=== PATIENT | male | born 1980 | race Caucasian/White ===

== ENCOUNTER 2021-08-12 09:43 | Emergency (ER) | payer BC, SELFPAY ==
[2021-08-12 09:44] VITALS: BP 149/100; PULSE 114; RESP 18; TEMP 36.8; O2SAT 94; BMI 28.8
--- NOTE | 2021-08-12 10:15 | CT_ITS ---
STUDY: CT ABDOMEN AND PELVIS WITHOUT CONTRAST REASON FOR EXAM: Male, 41 years old. Left lower quadrant pain for 3 days RADIATION DOSAGE (If Supplied By Facility): CTDIvol = ( 7.97 ) mGy, DLP = ( 422.17 ) mGycm TECHNIQUE: Transaxial images were obtained from the dome of the diaphragm to the symphysis pubis without oral contrast, and without intravenous contrast. Sagittal and coronal images were reconstructed. Individualized dose optimization techniques were used for this CT. COMPARISON: None. FINDINGS: The visualized lung bases are unremarkable. The visualized portions of the heart are within normal limits. Liver is fatty infiltrated without focal lesions.. Normal gallbladder and extrahepatic biliary system. Normal spleen. Normal pancreas. Normal bilateral adrenal glands. Normal right kidney. Normal left kidney. There is mild left lower quadrant sigmoid diverticulitis without perforation or abscess. There is no intestinal obstruction. Appendix is normal. Normal abdominal aorta. Normal inferior vena cava. Normal retroperitoneum. Normal urinary bladder. Normal abdominal wall. Normal osseous structures. CT/Abdomen/Pelvis without Cont IMPRESSION: 1. Mild left lower quadrant diverticulitis. No abscess. 2. Hepatic steatosis. Electronically Signed: Sheila Moreira MD at 12:01 EDT Tel , Service support ,
--- NOTE | 2021-08-12 10:17 | EDS_ITS ---
HPI HPI - GI History of Present Illness Chief Complaint: Abd Pain Narrative Narrative: Patient presents with left-sided flank pain that he has had since evening, approximately 2 days ago. He states he felt gradual onset of worsening pain mainly in his left lower quadrant. He took ibuprofen this morning with mild relief. He noticed his urine was dark this morning. However, he denies any fevers or chills. No nausea or vomiting. No problems with bowel movements, no diarrhea or constipation. He denies dysuria or gross hematuria. No past surgical history to his abdomen. States the pain is sometimes worse when he stands and walks. It has been constant recently, worse this morning, prompting him to come to the emergency department. [facility] Medical History no medical history Home Medications ciprofloxacin HCl [Cipro] 500 mg PO BID #20 tab 08/12/21 [Rx Last Taken Unknown] hydrocodone-acetaminophen 1 tab PO Q6H PRN 3 Days #10 tab 08/12/21 [Rx Last Taken Unknown] metronidazole 500 mg PO TID #30 tab 08/12/21 [Rx Last Taken Unknown] Allergy/AdvReac Type Severity Reaction Status Date / Time Penicillins Allergy Rash Verified 08/12/21 09:58 Social History Smoking Status: Current every day smoker tobacco type: cigarettes ROS ROS ED ROS Narrative Constitutional: No fever, no chills. HEENT: No sore throat. No neck pain. No loss of vision. No rhinorrhea. Cardiovascular: No chest pain. No palpitations. No pedal edema. Respiratory: No cough, no shortness of breath. Abdominal: Left lower quadrant abdominal pain. No nausea. No vomiting. No diarrhea or constipation. No blood in stool. Genitourinary: No dysuria. No hematuria. Dark urine this morning. Musculoskeletal: No myalgias. No arthralgias. Neurologic: No headaches. No dizziness. No lightheadedness. Skin: No rash. No change in color. Psychiatric: No depression. No anxiety. EXAM Physical Exam Narrative Exam Narrative: Afebrile. Vital signs noted. HEENT: Normocephalic. Atraumatic. PERRL, EOMI. Neck soft and supple. No point tenderness or step off. Cardiovascular: Regular rate and rhythm. No murmurs, rubs, or gallops appreciated. Respiratory: No tachypnea. Lungs clear to auscultation bilaterally. Gastrointestinal: Mild tenderness to palpation left lower quadrant. Abdomen soft, nontender, with normoactive bowel sounds. No rebound or guarding. Neurological: Awake. Alert. Nonfocal, nonlateralizing. Skin: No rash. Normal color. No pallor. Musculoskeletal: No pedal edema. Full range of motion extremities. Const Vital Signs: 08/12/21 09:44 Temperature 98.2 F Temperature Source Temporal Pulse Rate 114 H Respiratory Rate 18 Blood Pressure 149/100 H Blood Pressure Mean 116 Pulse Ox 94 Oxygen Delivery Method Room Air MDM MDM MDM Narrative Medical decision making narrative: In the differential diagnosis is diverticulitis, although he is not having any problems with obstipation or diarrhea. He also may have ureterolithiasis. Patient has an elevated white count of 15.9, hemoglobin 17.3 with hematocrit 50.4. CMP shows glucose appropriately elevated, total bili also slightly elevated. Urinalysis is negative for infection in the sense of negative nitrites and WBCs within normal limits. CT of the abdomen pelvis does show mild sigmoid diverticulitis without evidence of perforation or abscess formation. Repeat examination shows a patient resting comfortably. He does not have a primary care physician to follow-up with currently. I was able to discuss the patient with the [employer] sales representative, Dr. Mooney. He will be able to follow-up with him closely on Saturday. Patient is to give the office a call. He will be given a dose of IV Cipro and Flagyl here in the emergency department and prescription written for the next 10 days. I will also write him for a small amount of narcotic analgesia. I reviewed his prescription monitoring program. Repeat examination shows his abdomen remains soft. He was warned of the risk of abscess formation and perforation and I stressed the importance of close follow-up with a physician. Return instructions to the emergency department were reviewed. Disposition is discharged home in stable condition. Lab Data Attestation: I reviewed the patient's lab results. Labs: Laboratory Results - last 24 hr 08/12/21 08/12/21 08/12/21 10:36 10:42 10:42 WBC 15.9 H RBC 5.02 Hgb 17.3 H Hct 50.4 MCV 100.4 H MCH 34.5 H MCHC 34.3 RDW Std Deviation 45.9 H RDW Coeff of Chrissy 12.4 Plt Count 180 MPV 10.7 Immature Gran % (Auto) 0.500 Neut % (Auto) 74.3 H Lymph % (Auto) 16.2 L Young % (Auto) 8.4 Eos % (Auto) 0.3 Baso % (Auto) 0.3 Absolute Neuts (auto) 11.8 H Absolute Lymphs (auto) 2.58 Nucleated RBC % 0 Sodium 136 Potassium 4.0 Chloride 103 Carbon Dioxide 27.0 Anion Gap 6 BUN 12 Creatinine 1.26 Estim Creat Clear Calc 79.66 Est GFR (MDRD) Af Amer 81 Est GFR (MDRD) Non-Af 67 BUN/Creatinine Ratio 9.5 L Glucose 113 H Calcium 9.1 Total Bilirubin 1.70 H AST 22 ALT 46 Alkaline Phosphatase 93 Total Protein 8.0 Albumin 4.1 Globulin 3.9 Albumin/Globulin Ratio 1.1 Urine Color [place] Urine Clarity Sl. Cloudy Urine pH 6.0 Ur Specific [place] 1.020 Urine Protein 30 H Urine Glucose (UA) Normal Urine Ketones 5 H Urine Occult Blood 25 H Urine Nitrite Negative Urine Bilirubin 1 H Urine Urobilinogen 4 H Ur Leukocyte Esterase 25 H Urine RBC 0-5 SEEN Urine WBC 0-5 SEEN Ur Squamous Epith Cells 0 SEEN Urine Bacteria 0 SEEN Urine Mucus 1+ Radiography Diagnostic Testing: Clinical Impression(s) from Imaging Studies Abdomen/Pelvis CT 08/12/21 10:15 IMPRESSION: 1. Mild left lower quadrant diverticulitis. No abscess. 2. Hepatic steatosis. Electronically Signed: Sheila Moreira MD at 12:01 EDT Tel , Service support , Discharge Plan Triage Chief Complaint: Abd Pain ED Provider: Alfredo Dahl Dx/Rx/DC Orders Clinical Impression: Diverticulitis of sigmoid colon Instructions: ED Diverticulitis Prescriptions: New ciprofloxacin HCl [Cipro] 500 mg tablet 500 mg PO BID Qty: 20 RF: 0 metronidazole 500 mg tablet 500 mg PO TID Qty: 30 RF: 0 hydrocodone-acetaminophen 5-325 mg tablet 1 tab PO Q6H PRN (Reason: pain) 3 Days Qty: 10 RF: 0 Primary Care Provider: Care Physician,No Primary Referrals: Friend,DO Luis [STAFF PHYSICIAN] - 08/14/21 Care Physician,No Primary [Primary Care Provider] - Disposition Disposition: Home, Self Care
--- NOTE | 2021-08-12 10:40 | EX.ED.DYSGE1 ---
HPI History of Present Illness Chief Complaint: Abd Pain Informant: patient and parent Narrative Narrative: 13-year-old male brought in by mother for abdominal pain. Mom states this has been going on for approximately 1 week. He complains of diffuse abdominal pain. He has had 1-2 episodes of vomiting. Denies diarrhea or constipation. Denies urinary complaints. He has been able to tolerate p.o. He was seen at urgent care and by his primary care physician. Mom states his primary care physician advised him to come to the ED for CT scan. Recent Illness/Hospitalization: No PFSH PFSH Medical History no medical history Home Medications NK 08/12/21 [History Last Taken Unknown] Allergy/AdvReac Type Severity Reaction Status Date / Time Penicillins Allergy Rash Verified 08/12/21 09:58 Social History Smoking Status: Current every day smoker tobacco type: cigarettes ROS ROS ED Constitutional Constitutional ED: Denies fever(s) Eyes Eyes: Denies change in vision ENT ENT ED: Denies rhinorrhea or sore throat Cardiovascular Cardiovascular: Denies chest pain Respiratory/Chest Respiratory/Chest: Denies cough or dyspnea Gastrointestinal Gastrointestinal: Reports abdominal pain, nausea and vomiting; Denies constipation or diarrhea Genitourinary Genitourinary ED: Denies dysuria Musculoskeletal Musculoskeletal: Denies myalgias Integumentary Denies rash Neurologic Neurologic: Denies headache(s) Psychiatric Psychiatric: Denies suicidal thoughts EXAM Physical Exam Const Vital Signs: 08/12/21 09:44 Temperature 98.2 F Temperature Source Temporal Pulse Rate 114 H Respiratory Rate 18 Blood Pressure 149/100 H Blood Pressure Mean 116 Pulse Ox 94 Oxygen Delivery Method Room Air Positive well nourished and well developed General Appearance ED: well developed HEENT Reports normocephalic and head/scalp atraumatic Eyes PERRL and EOMs intact bilaterally Neck supple General: Negative for tenderness Chest Wall inspection of chest normal Resp normal respiratory effort and clear to auscultation bilaterally Cardio regular rate and regular rhythm GI non-distended Palpation: soft and tender epigastric and RLQ; Negative for guarding or rebound tenderness present no CVA tenderness Extremity normal to inspection Neuro oriented x3 Sensorium / Orientation: alert Psych mental status grossly normal Discharge Plan Triage Chief Complaint: Abd Pain ED Provider: Alfredo Dahl Dx/Rx/DC Orders Prescriptions: No Action NK RF: 0 Primary Care Provider: NOT,DEFINED
[2021-08-12 10:41] LABS: Bacteria 0 SEEN /hpf (None Seen); Squamous Epithelial Cells - UA 0 SEEN /hpf (0-5)
[2021-08-12] MEDS: 0.9% Normal Saline 1,000 ML 1000 ML IV (10:41)
[2021-08-12 10:42] LABS: Color, Urine Amber (Yellow); Glucose, Dipstick Normal (Normal); Ketone-Dipstick 5 mg/dl (Negative); Leukocyte Esterase-Dipstick 25 /ul (Negative); Nitrite-Dipstick Negative (Negative); Occult Blood-Urine 25 /ul (Negative); Protein-Dipstick 30 mg/dl (Negative); Urine Clarity Sl. Cloudy (Clear); Urine Urobilinogen 4 mg/dl (Normal)
[2021-08-12 10:43] LABS: Urine Bilirubin Dipstick 1 mg/dL (Negative)
[2021-08-12 10:54] LABS: Mucous, Urine 1+ /hpf (<or=2+); Red Blood Cells-Urine 0-5 SEEN /hpf (0-5); White Blood Cells 0-5 SEEN /hpf (0-5)
[2021-08-12 10:54] LABS: Absolute Lymphocyte Count 2.58 X10^3/uL (0.83-4.51); Absolute Neutrophil Count 11.8 X10^3/uL (2.0-7.7); Basophil# 0.04 X10^3/uL; Basophil% 0.3 % (0-1); Eosinophil# 0.04 X10^3/uL; Eosinophils% 0.3 % (0-5); Hematocrit 50.4 % (40-54); Hemoglobin 17.3 g/dL (13.0-16.5); Lymphocyte # 2.58 X10^3/ul (0.83-4.51); Lymphocyte % 16.2 % (19-41); Mean Corp Hgb Conc 34.3 g/dL (32-36); Mean Corpuscular Hgb 34.5 pg (27.0-32.0); Mean Corpuscular Volume 100.4 fL (80-94); Mean Platelet Vol. 10.7 fl (6.2-12.0); Monocyte# 1.34 X10^3/uL; Monocyte% 8.4 % (0-10); NRBC Flagged by Analyzer 0 % (0-5); Neutrophil # 11.84 X10^3/uL (2.7-7.7); Neutrophil % 74.3 % (47-70); Platelet Count 180 K/mm3 (150-450); RBC Distribution Width CV 12.4 % (11.6-14.6); RBC Distribution Width SD 45.9 fl (35.1-43.9); Red Blood Count 5.02 M/mm3 (4.6-6.2); White Blood Count 15.9 K/mm3 (4.4-11.0)
[2021-08-12 11:12] LABS: ALB/GLOB Ratio 1.1 RATIO (0.9-2.4); AST(SGOT) 22 U/L (15-37); Alanine Aminotransfer ALT/SGPT 46 U/L (16-61); Albumin, Serum 4.1 g/dL (3.2-5.0); Alkaline Phosphatase 93 U/L (45-117); Anion Gap 6 (5-15); BUN 12 mg/dL (7-18); BUN/Creat Ratio 9.5 RATIO (10-20); Calcium,Total 9.1 mg/dL (8.5-10.1); Chloride 103 mmol/L (98-107); Creatinine, Serum 1.26 mg/dL (0.70-1.30); EST Glomerular Filtration Rate 67 mL/min (>60); Est Glom Filt Rate - Afr Amer 81 mL/min (>60); Estimated Creatinine Clearance 79.66 ml/min; Globulin 3.9 g/dL (2.2-4.2); Glucose 113 mg/dL (74-106); Sodium Level 136 mmol/L (136-145)
[2021-08-12] MEDS: metroNIDAZOLE 500 MG/100 ML BAG 100 MG IV (13:29)
[2021-08-12] MEDS: Ciprofloxacin 400 MG/200 ML BAG 200 MG IV (14:43)
[2021-08-12 16:18] VITALS: PULSE 95; RESP 18; O2SAT 96
== END 2021-08-12 16:24 | disposition home or self-care (01) ==
PROVIDERS: Emergency Provider Emergency Medicine
DX: K57.32 Diverticulitis of large intestine without perforation or abscess without bleeding (principal); K76.0 Fatty (change of) liver, not elsewhere classified; F17.210 Nicotine dependence, cigarettes, uncomplicated
CPT/HCPCS: 74176; 80053; 81001; 85025; 96361; 96365; 96366; 96367; 99283; J7030; J7050; A4216; J0744

== ENCOUNTER 2021-08-19 09:34 | Inpatient (IN) | payer BC, SELFPAY ==
[2021-08-19] VITALS (9 sets, daily range): BP systolic 113–149; BP diastolic 74–95; PULSE 70–109; RESP 15–17; TEMP 36.2–37.1; O2SAT 96–100; BMI 28.2; BMI 28.3
--- NOTE | 2021-08-19 09:57 | CT_ITS ---
STUDY: CT ABDOMEN AND PELVIS WITH CONTRAST REASON FOR EXAM: Male, 41 years old. Diverticulitis, worsening pain RADIATION DOSAGE (If Supplied By Facility): CTDIvol = ( 11.7 ) mGy, DLP = ( 886.17 ) mGycm TECHNIQUE: Transaxial images were obtained from the dome of the diaphragm to the symphysis pubis without oral contrast. IV 100mL Isovue-300 was administered. Sagittal and coronal images were reconstructed. Individualized dose optimization techniques were used for this CT. COMPARISON: 08/12/2021. FINDINGS: The visualized lung bases are unremarkable. The visualized portions of the heart are within normal limits. Normal liver. Normal gallbladder and extrahepatic biliary system. Normal spleen. Normal pancreas. Normal bilateral adrenal glands. Normal right kidney. Normal left kidney. Normal visualized stomach. Normal small intestine. There is wall thickening and inflammation at the mid sigmoid colon with adjacent extraluminal gas containing collection measuring 5 x 3.5 cm representing an abscess. This is new since the previous study. The appendix is visualized and appears normal. Normal abdominal aorta. Normal inferior vena cava. Normal retroperitoneum. Normal urinary bladder. Mild fatty density at the inguinal canals. Normal abdominal wall. Normal osseous structures. CT/Abdomen/Pelvis W IV Cont ONLY IMPRESSION: Sigmoid diverticulitis with an abscess noted. Electronically Signed: Carmelo Rivera DO at 10:58 EDT Tel [phone], Service support ,
--- NOTE | 2021-08-19 09:57 | EDS_ITS ---
HPI HPI - GI History of Present Illness Chief Complaint: Abd Pain Informant: patient Abdominal Pain/Flank Pain Onset: Weeks (1-2) Context: Gradual Onset Timing: Continuous Quality: Aching, Sharp and Stabbing Location: LLQ Current Severity: Severe Maximum Severity: Severe Worsened by: Movement Relieved by: Nothing Nausea/Vomiting/Emesis GI Symptom: Negative for Nausea and Vomiting Diarrhea/Melena/Hematochezia GI Symptom: Negative for Diarrhea, Melena and Hematochezia Associated Symptoms Associated Symptoms: Negative for Dysuria, Frequency, Hematuria and Urgency Narrative Narrative: 41-year-old healthy male diagnosed with diverticulitis 1 week ago at a visit here, prescribed Cipro and Flagyl which he has been compliant with, pain continuing to worsen however. Denies any nausea, vomiting, fevers, or chills. No pain in his back. No new symptoms, the pain is not improved at all with antibiotics and just has continued to worsen. PFSH PFSH Medical History no medical history no medical history Home Medications ciprofloxacin HCl [Cipro] 500 mg PO BID #20 tab 08/12/21 [Rx Last Taken Unknown] metronidazole 500 mg PO TID #30 tab 08/12/21 [Rx Last Taken Unknown] Allergy/AdvReac Type Severity Reaction Status Date / Time Penicillins Allergy Rash Verified 08/19/21 09:34 Surgical History no surgical history no surgical history Social History Smoking Status: Current every day smoker tobacco type: cigarettes ROS ROS ED Constitutional Constitutional ED: Reports anorexia; Denies chills or fever(s) Eyes Eyes: Denies change in vision or diplopia ENT ENT ED: Denies rhinorrhea or sore throat Cardiovascular Cardiovascular: Denies chest pain or palpitations Respiratory/Chest Respiratory/Chest: Denies cough or dyspnea Gastrointestinal Gastrointestinal: Reports as per HPI and abdominal pain; Denies diarrhea, nausea or vomiting Genitourinary Genitourinary ED: Denies dysuria or hematuria Musculoskeletal Musculoskeletal: Denies back pain or neck pain Integumentary Denies abscess or rash Neurologic Neurologic: Denies headache(s), paresthesias or weakness Psychiatric Psychiatric: Denies anxiety or suicidal thoughts EXAM Physical Exam Const Vital Signs: 08/19/21 09:35 08/19/21 09:39 08/19/21 11:16 Temperature 97.2 F L 97.2 F L 97.7 F L Temperature Source Temporal Temporal Oral Pulse Rate 109 H 109 H 83 Respiratory Rate 17 17 16 Blood Pressure 149/95 H 149/95 H 132/89 H Blood Pressure Mean 113 113 103 Pulse Ox 100 100 99 Oxygen Delivery Method Room Air Room Air Room Air Positive well nourished and well developed General Appearance ED: well developed and NAD HEENT Reports moist mucous membranes normocephalic and atraumatic Eyes PERRL and EOMs intact bilaterally Neck full ROM and supple Resp normal respiratory effort and clear to auscultation bilaterally Cardio regular rate, regular rhythm and no murmurs GI non-distended Auscultation: normoactive bowel sounds Palpation: soft, tender LLQ and guarding LLQ; Negative for rebound tenderness present Back/Spine no CVA tenderness General Back: other FROM Extremity normal to inspection General Extremety ED: Negative for edema, pulses abnormal or tenderness General Extremity: Negative for edema or pulses abnormal Neuro oriented x3, CN's II-XII intact bilaterally and no sensory deficits noted Sensorium / Orientation: awake and alert Motor Exam: strength 5/5 throughout Skin no rashes or lesions noted and no wounds MDM MDM MDM Narrative Medical decision making narrative: Pain was treated, patient is clinically stable. CT showing worsening diverticulitis now with a 5 cm abscess associated with it which is likely why he is failing outpatient treatment. Discussed with Dr. Serrano, who recommends medicine admission and consultation with in [facility] radiology, they will not likely be available over the weekend but will admit the patient for IV antibiotics since no other hospitals have had any beds recently. Lab Data Attestation: I reviewed the patient's lab results. Labs: Laboratory Results - last 24 hr 08/19/21 08/19/21 10:00 10:00 WBC 14.2 H RBC 4.39 L Hgb 15.3 Hct 43.5 MCV 99.1 H MCH 34.9 H MCHC 35.2 RDW Std Deviation 42.5 RDW Coeff of Chrissy 11.7 Plt Count 284 MPV 10.2 Immature Gran % (Auto) 0.500 Neut % (Auto) 71.2 H Lymph % (Auto) 18.3 L B[place] % (Auto) 8.8 Eos % (Auto) 0.9 Baso % (Auto) 0.3 Absolute Neuts (auto) 10.2 H Absolute Lymphs (auto) 2.60 Nucleated RBC % 0 Sodium 134 L Potassium 3.6 Chloride 100 Carbon Dioxide 23.0 Anion Gap 11 BUN 15 Creatinine 1.22 Estim Creat Clear Calc 82.27 Est GFR (MDRD) Af Amer 84 Est GFR (MDRD) Non-Af 69 BUN/Creatinine Ratio 12.3 Glucose 112 H Calcium 9.1 Radiography Diagnostic Testing: Clinical Impression(s) from Imaging Studies Abdomen/Pelvis CT 08/19/21 09:57 IMPRESSION: Sigmoid diverticulitis with an abscess noted. Electronically Signed: Carmelo Rivera DO at 10:58 EDT Tel [phone], Service support , Discharge Plan Triage Chief Complaint: Abd Pain ED Provider: Kurt Reyes Dx/Rx/DC Orders Clinical Impression: Diverticulitis of large intestine with abscess without bleeding, Failure of outpatient treatment Prescriptions: No Action ciprofloxacin HCl [Cipro] 500 mg tablet 500 mg PO BID Qty: 20 RF: 0 metronidazole 500 mg tablet 500 mg PO TID Qty: 30 RF: 0 Primary Care Provider: Care Physician,No Primary Referrals: Care Physician,No Primary [Primary Care Provider] - Disposition Disposition: Acute Care [facility]
[2021-08-19] MEDS: Ondansetron 4 MG/2 ML Vial IV (10:13)
[2021-08-19] MEDS: 0.9% Normal Saline 1,000 ML 1000 ML IV (10:13)
[2021-08-19] MEDS: Ketorolac 15 MG/ML Vial IV (10:15)
[2021-08-19 10:16] LABS: Absolute Neutrophil Count 10.2 X10^3/uL (2.0-7.7); Basophil# 0.04 X10^3/uL; Basophil% 0.3 % (0-1); Eosinophil# 0.13 X10^3/uL; Eosinophils% 0.9 % (0-5); Hematocrit 43.5 % (40-54); Hemoglobin 15.3 g/dL (13.0-16.5); Lymphocyte % 18.3 % (19-41); Mean Corp Hgb Conc 35.2 g/dL (32-36); Mean Corpuscular Hgb 34.9 pg (27.0-32.0); Mean Corpuscular Volume 99.1 fL (80-94); Mean Platelet Vol. 10.2 fl (6.2-12.0); Monocyte# 1.25 X10^3/uL; Monocyte% 8.8 % (0-10); NRBC Flagged by Analyzer 0 % (0-5); Neutrophil # 10.15 X10^3/uL (2.7-7.7); Neutrophil % 71.2 % (47-70); Platelet Count 284 K/mm3 (150-450); RBC Distribution Width CV 11.7 % (11.6-14.6); RBC Distribution Width SD 42.5 fl (35.1-43.9); Red Blood Count 4.39 M/mm3 (4.6-6.2); White Blood Count 14.2 K/mm3 (4.4-11.0)
[2021-08-19] MEDS: Morphine 4 MG/ML Syringe IV (10:16)
[2021-08-19 10:25] LABS: Anion Gap 11 (5-15); BUN 15 mg/dL (7-18); BUN/Creat Ratio 12.3 RATIO (10-20); Calcium,Total 9.1 mg/dL (8.5-10.1); Chloride 100 mmol/L (98-107); Creatinine, Serum 1.22 mg/dL (0.70-1.30); EST Glomerular Filtration Rate 69 mL/min (>60); Est Glom Filt Rate - Afr Amer 84 mL/min (>60); Estimated Creatinine Clearance 82.27 ml/min; Glucose 112 mg/dL (74-106); Potassium 3.6 mmol/L (3.5-5.1); Sodium Level 134 mmol/L (136-145)
--- NOTE | 2021-08-19 11:51 | PCM.HP.STD ---
[facility] - General General Date of Admission: 08/19/21 Date of Service: 08/19/21 HPI Narrative STEPHANIE CHAMBERLAIN, is a 41 M who presented at [facility] emergency department on 08/19/2021 with left lower quadrant abdominal pain. He initially presented on 08/12/2021 at which time he complained of left-sided flank pain that he had been suffering from since the evening prior. At that time he reported that the pain was of gradual onset and worsening in nature. He had tried ibuprofen with no relief and had decreased p.o. intake. At that time he had an elevated white count 15.9 and appeared to be mildly hemoconcentrated. A CT of his abdomen and pelvis was performed and showed mild sigmoid diverticulitis without any evidence of perforation or abscess. The case was discussed with the cook supervisor Dr. Mooney and he was to follow him in the office on Saturday the and he was discharged on Cipro and Flagyl. Unfortunately his symptoms have persisted and his pain is actually worsening. He has been compliant with his home antibiotic regimen. A repeat CT scan was done in the emergency department today and showed thickening and inflammation in the mid sigmoid colon with adjacent extraluminal gas containing a collection measuring 5 x 3.5 cm that represents an abscess. Given his out failed oral antibiotic therapy admission has been recommended by general surgery with no definitive surgical plan at this time. They recommended IR placement of a drain on Saturday when this is available. Transfer was offered but the patient really prefers to stay here so he will be admitted placed on IV antibiotics and followed up with general surgery and interventional radiology for drain to be placed as soon as available. [facility] Medical History (Updated 08/19/21 @ 12:[address] Neelam Sanchez DO) Sigmoid diverticulitis Tobacco abuse Medical History no medical history Home Medications ciprofloxacin HCl [Cipro] 500 mg PO BID #20 tab 08/12/21 [Rx Last Taken Unknown] metronidazole 500 mg PO TID #30 tab 08/12/21 [Rx Last Taken Unknown] Allergy/AdvReac Type Severity Reaction Status Date / Time Penicillins Allergy Rash Verified 08/19/21 09:34 Family History Father Hypertension Mother Hypertension Surgical History no surgical history no surgical history Social History (Updated 08/19/21 @ 12:[address] Neelam Sanchez DO) Smoking Status: Current every day smoker tobacco type: cigarettes alcohol intake: current alcohol intake frequency: 0-2 drinks per day Alcohol type: beer details: 2-3 beers every other day during a week substance use type: does not use ROS Constitutional Constitutional: Denies anorexia, change in weight, chills, fatigue, fever(s), malaise, night sweats, weakness or other Eyes Eyes: Denies blurry vision, change in eye color, change in vision, discharge from eye(s), double vision, erythema, eye pain, loss of vision or other ENT HEENT: Denies abnormal hearing, dysphagia, ear pain, epistaxis, headache(s), hearing loss, nasal congestion, nasal discharge, post nasal drip, sinus pressure, sore throat or other Cardiovascular Cardiovascular: Denies chest pain, claudication, dyspnea on exertion, edema, lightheadedness, orthopnea, palpitations, paroxysmal nocturnal dyspnea, rapid heart rate, syncope or other Respiratory/Chest Respiratory/Chest: Denies cough, dyspnea, excessive phlegm production, hemoptysis, productive cough, shortness of breath at rest, shortness of breath with exertion, wheezing or other Gastrointestinal Gastrointestinal: Reports abdominal pain and constipation; Denies coffee ground emesis, diarrhea, dyspepsia, hematemesis, hematochezia, loose stools, melena, nausea, vomiting or other Genitourinary Genitourinary: Denies burning urination, difficulty urinating, dysuria, hematuria, nocturia, urinary frequency, urinary hesitancy, urinary incontinence, urinary urgency or other Musculoskeletal Musculoskeletal: Denies arthralgias, back pain, joint pain, joint stiffness, joint swelling, myalgias, neck pain or other Neurologic Neurologic: Denies abnormal gait, abnormal speech, confusion, disequilibrium, dizziness, focal weakness, headache(s), numbness, paresthesias, seizure-like activity, seizures, syncope, tingling, tremor(s) or other Psychiatric Psychiatric: Denies anxiety, depression, homicidal ideation, suicidal ideation or other Endocrine Endocrinology: Denies change in body appearance, cold intolerance, excessive sweating, heat intolerance, polydipsia, polyuria or other Hematologic/Lymphatic Hematologic/Lymphatic: Denies anemia, easy bleeding, easy bruising, lymphadenopathy or other Allergic/Immunologic Allergic/Immunologic: Denies rhinitis, hives, eczemia, asthma or other Vital Signs Vital Signs Vital Signs: 08/19/21 09:35 08/19/21 09:39 08/19/21 11:16 Temperature 97.2 F L 97.2 F L 97.7 F L Temperature Source Temporal Temporal Oral Pulse Rate 109 H 109 H 83 Respiratory Rate 17 17 16 Blood Pressure 149/95 H 149/95 H 132/89 H Blood Pressure Mean 113 113 103 Pulse Ox 100 100 99 Oxygen Delivery Method Room Air Room Air Room Air 08/19/21 11:47 08/19/21 11:48 Temperature 97.7 F L Temperature Source Oral Pulse Rate 83 Respiratory Rate 16 16 Blood Pressure 132/89 H Blood Pressure Mean 103 Pulse Ox 99 Oxygen Delivery Method Room Air Weight Weight: 89.267 kg Body Mass Index (BMI) 28.2 Physical Exam Const alert, oriented x3 and no apparent distress Constitutional Narrative: Overweight middle-aged white male lying in bed, appears comfortable, nontoxic General Appearance: cooperative HEENT normocephalic, head/scalp atraumatic, hearing grossly normal bilaterally and moist oral mucous membranes Eyes PERRL, EOMs intact bilaterally and conjunctivae normal Eyes Narrative: No scleral icterus Neck no lymphadenopathy, supple and no JVD Neck Narrative: Trachea midline, Mallampati 2, tongue piercing central tongue Resp normal respiratory effort, no retractions, no use of accessory muscles and clear to auscultation bilaterally Auscultation: Negative for crackles, rales, rhonchi or wheezes Cardio regular rate, regular rhythm, S1 normal heart sound, S2 normal heart sound, no murmurs, no rub, no gallops, no clicks and no JVD GI normal to inspection, nondistended, normoactive bowel sounds, soft to palpation and non-distended Palpation: tender LLQ and guarding Extremity normal to inspection, full ROM and no clubbing, cyanosis or edema Peripheral Pulses: Yes pulses 2+ throughout Skin no rashes or lesions noted, no wounds, skin turgor normal, no jaundice, no petechiae and no mottling Neuro oriented x3, CN's II-XII intact bilaterally, moves all extremities and no focal motor deficits Neuro Narrative: Normal sensation diffusely Sensorium / Orientation: awake, alert, oriented to person, oriented to place and oriented to time Speech: speech normal Motor Exam: strength 5/5 throughout Psych affect normal Psych Narrative: Very pleasant Results Lab / Micro Data Attestation: I reviewed the patient's lab results. Result Diagrams: 08/19/21 10:00 08/19/21 10:00 Labs: Laboratory Results - last 24 hr 08/19/21 10:00: WBC 14.2 H, RBC 4.39 L, Hgb 15.3, Hct 43.5, MCV 99.1 H, MCH 34.9 H, MCHC 35.2, RDW Std Deviation 42.5, RDW Coeff of Chrissy 11.7, Plt Count 284, MPV 10.2, Immature Gran % (Auto) 0.500, Neut % (Auto) 71.2 H, Lymph % (Auto) 18.3 L, [place] % (Auto) 8.8, Eos % (Auto) 0.9, Baso % (Auto) 0.3, Absolute Neuts (auto) 10.2 H, Absolute Lymphs (auto) 2.60, Nucleated RBC % 0 08/19/21 10:00: Sodium 134 L, Potassium 3.6, Chloride 100, Carbon Dioxide 23.0, Anion Gap 11, BUN 15, Creatinine 1.22, Estim Creat Clear Calc 82.27, Est GFR (MDRD) Af Amer 84, Est GFR (MDRD) Non-Af 69, BUN/Creatinine Ratio 12.3, Glucose 112 H, Calcium 9.1 Radiology Impression Abdomen/Pelvis CT 08/19/21 09:57 IMPRESSION: Sigmoid diverticulitis with an abscess noted. Electronically Signed: Carmelo Rivera DO at 10:58 EDT Tel [phone], Service support , Assessment & Plan Assessment/Plan (1) Diverticulitis of large intestine with abscess without bleeding: (2) Failure of outpatient treatment: (3) Leukocytosis: (4) Hyponatremia: PLAN: Acute diverticulitis of the sigmoid colon with abscess -Failure of outpatient therapy and development of abscess -IR consultation for drain placement as soon as possible for source control -We will continue Cipro and Flagyl but convert to IV -N.p.o. with sips and chips sparingly -IV fluids at 75 cc/h -IV Dilaudid for pain management -Consult general surgery Leukocytosis -Suspect related to the above -Continue to monitor -IV antibiotics Hyponatremia -Mild -Suspect most likely hypovolemic hyponatremia from decreased p.o. intake -Repeat in a.m. Tobacco abuse -Patient smokes approximately 1 pack/day -Denies need for any nicotine replacement therapy at this time--> patient will ask if he desires this -Recommend cessation Elevated blood pressure without history of hypertension -May be related to pain -Continue to monitor blood pressures while admitted -If blood pressures remain consistently high during his hospitalization will recommend follow-up as an outpatient and consideration for initiation of antihypertensives Regular alcohol use -Patient states he drinks approximately 3 beers every other day -Never gone through withdrawal -We will monitor DVT prophylaxis -Lovenox daily 40 mg CODE STATUS -Full code Charges/Coding Visit Charges Inpatient E&M: 67026 Init Hosp L3
[2021-08-19] MEDS: 0.9% Normal Saline 1,000 ML 75 ML IV (14:05)
[2021-08-19] MEDS: Ciprofloxacin 400 MG/200 ML BAG 200 MG IV ×2 (14:05→21:28)
--- NOTE | 2021-08-19 15:07 | PCS.PANDOC ---
PANDEMIC DOCUMENTATION INITIATED: Date: 06/12/2021 Time: 190
[2021-08-19] MEDS: metroNIDAZOLE 500 MG/100 ML BAG 100 MG IV ×2 (15:34→23:07)
[2021-08-20 02:35] VITALS: BP 108/73; PULSE 78; RESP 16; TEMP 36.7; O2SAT 96
[2021-08-20] MEDS: 0.9% Normal Saline 1,000 ML 75 ML IV ×2 (05:57→22:54)
[2021-08-20] MEDS: metroNIDAZOLE 500 MG/100 ML BAG 100 MG IV ×3 (05:58→22:55)
[2021-08-20 06:02] LABS: Absolute Lymphocyte Count 2.51 X10^3/uL (0.83-4.51); Absolute Neutrophil Count 5.7 X10^3/uL (2.0-7.7); Basophil# 0.04 X10^3/uL; Basophil% 0.4 % (0-1); Eosinophil# 0.18 X10^3/uL; Eosinophils% 1.9 % (0-5); Hematocrit 41.1 % (40-54); Hemoglobin 14.1 g/dL (13.0-16.5); Lymphocyte # 2.51 X10^3/ul (0.83-4.51); Lymphocyte % 26.9 % (19-41); Mean Corp Hgb Conc 34.3 g/dL (32-36); Mean Corpuscular Hgb 34.5 pg (27.0-32.0); Mean Corpuscular Volume 100.5 fL (80-94); Mean Platelet Vol. 10.4 fl (6.2-12.0); Monocyte# 0.87 X10^3/uL; Monocyte% 9.3 % (0-10); NRBC Flagged by Analyzer 0 % (0-5); Neutrophil # 5.68 X10^3/uL (2.7-7.7); Neutrophil % 60.9 % (47-70); Platelet Count 271 K/mm3 (150-450); RBC Distribution Width CV 11.8 % (11.6-14.6); RBC Distribution Width SD 43.6 fl (35.1-43.9); Red Blood Count 4.09 M/mm3 (4.6-6.2); White Blood Count 9.3 K/mm3 (4.4-11.0)
[2021-08-20 06:37] LABS: ALB/GLOB Ratio 0.7 RATIO (0.9-2.4); AST(SGOT) 18 U/L (15-37); Alanine Aminotransfer ALT/SGPT 21 U/L (16-61); Albumin, Serum 2.9 g/dL (3.2-5.0); Alkaline Phosphatase 71 U/L (45-117); Anion Gap 8 (5-15); BUN 14 mg/dL (7-18); Calcium,Total 8.2 mg/dL (8.5-10.1); Chloride 105 mmol/L (98-107); EST Glomerular Filtration Rate 88 mL/min (>60); Est Glom Filt Rate - Afr Amer 106 mL/min (>60); Estimated Creatinine Clearance 100.38 ml/min; Globulin 3.9 g/dL (2.2-4.2); Glucose 84 mg/dL (74-106); Magnesium 2.4 mg/dL (1.6-2.6); Phosphorus 3.2 mg/dL (2.5-4.9); Protein, Total 6.8 g/dL (6.4-8.2); Sodium Level 137 mmol/L (136-145)
[2021-08-20 08:15] VITALS: O2SAT 95
[2021-08-20] MEDS: Enoxaparin 40 MG/0.4 ML Syringe SC (08:56)
[2021-08-20 09:04] VITALS: BP 120/85; PULSE 72; RESP 16; TEMP 36.6; O2SAT 98
[2021-08-20] MEDS: Ciprofloxacin 400 MG/200 ML BAG 200 MG IV ×2 (09:46→21:50)
--- NOTE | 2021-08-20 09:54 | EX.PCM.CON.S ---
Assessment & Plan Assessment/Plan (1) Diverticulitis of large intestine with abscess without bleeding: PLAN: Agree with drain placement. We will need to make sure once this is placed his white count comes down and he does not have increasing abdominal pain. Hopefully we will be able to discharge him and allow things to cool down. HPI Consult Data Date of Consult: 08/20/21 HPI Narrative HPI Narrative: STEPHANIE CHAMBERLAIN, is a 41 M who presented at [facility] emergency department on 08/19/2021 with left lower quadrant abdominal pain. He initially presented on 08/12/2021 at which time he complained of left-sided flank pain that he had been suffering from since the evening prior. At that time he reported that the pain was of gradual onset and worsening in nature. He had tried ibuprofen with no relief and had decreased p.o. intake. At that time he had an elevated white count 15.9 and appeared to be mildly hemoconcentrated. A CT of his abdomen and pelvis was performed and showed mild sigmoid diverticulitis without any evidence of perforation or abscess. The case was discussed with the strategic development manager Dr. Mooney and he was to follow him in the office on Saturday the and he was discharged on Cipro and Flagyl. Unfortunately his symptoms have persisted and his pain is actually worsening. He has been compliant with his home antibiotic regimen. A repeat CT scan was done in the emergency department today and showed thickening and inflammation in the mid sigmoid colon with adjacent extraluminal gas containing a collection measuring 5 x 3.5 cm that represents an abscess. Given his out failed oral antibiotic therapy admission has been recommended by general surgery with no definitive surgical plan at this time. They recommended IR placement of a drain on Saturday when this is available. Transfer was offered but the patient really prefers to stay here so he will be admitted placed on IV antibiotics and followed up with general surgery and interventional radiology for drain to be placed as soon as available. Pain has improved overnight. [facility] Medical History Diverticulitis Sigmoid diverticulitis Smoker Tobacco abuse Medical History no medical history Home Medications ciprofloxacin HCl [Cipro] 500 mg PO BID 08/19/21 [History Last Taken 08/19/21 07:00] metronidazole 500 mg PO TID 08/19/21 [History Last Taken 08/19/21 08:00] Allergy/AdvReac Type Severity Reaction Status Date / Time Penicillins Allergy Rash Verified 08/19/21 09:34 Family History Father Hypertension Mother Hypertension Surgical History no surgical history Social History Smoking Status: Current every day smoker tobacco type: cigarettes alcohol intake: current alcohol intake frequency: 0-2 drinks per day Alcohol type: beer details: 2-3 beers every other day during a week substance use type: does not use ROS Constitutional Constitutional: Denies anorexia, chills or fever(s) Cardiovascular Cardiovascular: Denies chest pain Respiratory/Chest Respiratory/Chest: Denies cough, dyspnea or shortness of breath at rest Gastrointestinal Gastrointestinal: Reports abdominal pain and constipation; Denies nausea or vomiting Genitourinary Genitourinary: Denies change in urinary stream Musculoskeletal Musculoskeletal: Denies muscle weakness Neurologic Neurologic: Denies dizziness Physical Exam Const alert, oriented x3 and no apparent distress General Appearance: cooperative HEENT normocephalic and head/scalp atraumatic Eyes PERRL and EOMs intact bilaterally Resp clear to auscultation bilaterally Cardio Rate: regular rate Rhythm: regular rhythm GI soft to palpation Palpation: tender LLQ Extremity General Extremity: Negative for calf tenderness Lab / Micro Data Result Diagrams: 08/20/21 05:30 08/20/21 05:30 Labs: Laboratory Results - last 24 hr 08/19/21 10:00: WBC 14.2 H, RBC 4.39 L, Hgb 15.3, Hct 43.5, MCV 99.1 H, MCH 34.9 H, MCHC 35.2, RDW Std Deviation 42.5, RDW Coeff of Chrissy 11.7, Plt Count 284, MPV 10.2, Immature Gran % (Auto) 0.500, Neut % (Auto) 71.2 H, Lymph % (Auto) 18.3 L, [place] % (Auto) 8.8, Eos % (Auto) 0.9, Baso % (Auto) 0.3, Absolute Neuts (auto) 10.2 H, Absolute Lymphs (auto) 2.60, Nucleated RBC % 0 08/19/21 10:00: Sodium 134 L, Potassium 3.6, Chloride 100, Carbon Dioxide 23.0, Anion Gap 11, BUN 15, Creatinine 1.22, Estim Creat Clear Calc 82.27, Est GFR (MDRD) Af Amer 84, Est GFR (MDRD) Non-Af 69, BUN/Creatinine Ratio 12.3, Glucose 112 H, Calcium 9.1 08/20/21 05:30: WBC 9.3, RBC 4.09 L, Hgb 14.1, Hct 41.1, MCV 100.5 H, MCH 34.5 H, MCHC 34.3, RDW Std Deviation 43.6, RDW Coeff of Chrissy 11.8, Plt Count 271, MPV 10.4, Immature Gran % (Auto) 0.600, Neut % (Auto) 60.9, Lymph % (Auto) 26.9, [place] % (Auto) 9.3, Eos % (Auto) 1.9, Baso % (Auto) 0.4, Absolute Neuts (auto) 5.7, Absolute Lymphs (auto) 2.51, Nucleated RBC % 0 08/20/21 05:30: Sodium 137, Potassium 4.0, Chloride 105, Carbon Dioxide 24.0, Anion Gap 8, BUN 14, Creatinine 1.00, Estim Creat Clear Calc 100.38, Est GFR (MDRD) Af Amer 106, Est GFR (MDRD) Non-Af 88, BUN/Creatinine Ratio 14.0, Glucose 84, Calcium 8.2 L, Phosphorus 3.2, Magnesium 2.4, Total Bilirubin 0.40, AST 18, ALT 21, Alkaline Phosphatase 71, Total Protein 6.8, Albumin 2.9 L, Globulin 3.9, Albumin/Globulin Ratio 0.7 L Radiology Impression Abdomen/Pelvis CT 08/19/21 09:57 IMPRESSION: Sigmoid diverticulitis with an abscess noted. Electronically Signed: Carmelo Rivera DO at 10:58 EDT Tel [phone], Service support ,
--- NOTE | 2021-08-20 11:16 | PN.HOSP_ITS ---
Subjective Subjective Patient states he is feeling a little bit better with decreased pain although pain is still present. Denies any nausea or vomiting. States he is hungry but understands that he needs to remain n.p.o. Drain is planned for tomorrow a.m. and this was discussed with him. Objective Data Objective Data Vital Signs: Vital Signs Temp Pulse Resp BP Pulse Ox 97.9 F 72 16 120/85 H 98 08/20/21 09:04 08/20/21 09:04 08/20/21 09:04 08/20/21 09:04 08/20/21 09:04 Oxygen Delivery Method Room Air Weight: 89.358 kg Body Mass Index (BMI) 28.3 Intake & Output: Intake and Output for Last 24 Hours 08/18/21 08/19/21 08/20/21 23:59 23:59 23:59 Intake Total 1100.00 / 1100.00 Balance 1100.00 / 1100.00 Lab / Micro Data Result Diagrams: 08/20/21 05:30 08/20/21 05:30 Labs: Laboratory Results - last 24 hr 08/20/21 05:30: WBC 9.3, RBC 4.09 L, Hgb 14.1, Hct 41.1, MCV 100.5 H, MCH 34.5 H , MCHC 34.3, RDW Std Deviation 43.6, RDW Coeff of Chrissy 11.8, Plt Count 271, MPV 10.4, Immature Gran % (Auto) 0.600, Neut % (Auto) 60.9, Lymph % (Auto) 26.9, [place] % (Auto) 9.3, Eos % (Auto) 1.9, Baso % (Auto) 0.4, Absolute Neuts (auto) 5.7, Absolute Lymphs (auto) 2.51, Nucleated RBC % 0 08/20/21 05:30: Sodium 137, Potassium 4.0, Chloride 105, Carbon Dioxide 24.0, Anion Gap 8, BUN 14, Creatinine 1.00, Estim Creat Clear Calc 100.38, Est GFR (MDRD) Af Amer 106, Est GFR (MDRD) Non-Af 88, BUN/Creatinine Ratio 14.0, Glucose 84, Calcium 8.2 L, Phosphorus 3.2, Magnesium 2.4, Total Bilirubin 0.40, AST 18, ALT 21, Alkaline Phosphatase 71, Total Protein 6.8, Albumin 2.9 L, Globulin 3.9, Albumin/Globulin Ratio 0.7 L Physical Exam Const alert, oriented x3 and no apparent distress Constitutional Narrative: Overweight middle-aged white male lying in bed, appe ars comfortable, nontoxic General Appearance: cooperative Exam Limitations: no limitations Nutritional Appearance: overweight HEENT normocephalic, head/scalp atraumatic, hearing grossly normal bilaterally and moist oral mucous membranes Head and Scalp: normocephalic Resp normal respiratory effort, no retractions, no use of accessory muscles and clear to auscultation bilaterally Auscultation: Negative for crackles, rales, rhonchi or wheezes Cardio regular rate, regular rhythm, S1 normal heart sound, S2 normal heart sound, no murmurs, no rub, no gallops, no clicks and no JVD GI normal to inspection, nondistended, normoactive bowel sounds, soft to palpation and non-distended Palpation: tender LLQ and guarding Extremity normal to inspection and no clubbing, cyanosis or edema Peripheral Pulses: Yes pulses 2+ throughout Neuro oriented x3 and moves all extremities Neuro Narrative: Normal sensation diffusely Sensorium / Orientation: awake and alert Speech: speech normal Assessment & Plan Assessment/Plan (1) Diverticulitis of large intestine with abscess without bleeding: (2) Failure of outpatient treatment: (3) Leukocytosis: (4) Hyponatremia: PLAN: Acute diverticulitis of the sigmoid colon with abscess -Failure of outpatient therapy and development of abscess -IR consultation for drain placement as soon as possible for source control--> plan for tomorrow a.m. -Continue Cipro and Flagyl IV -Maintain n.p.o. with sips and chips sparingly -Continue IV fluids at 75 cc/h -Continue IV Dilaudid for pain management -General surgery is following--> Dr. Serrano's note was reviewed and case was discussed with him Leukocytosis -Resolved Hyponatremia -Resolved Tobacco abuse -Patient smokes approximately 1 pack/day -Denies need for any nicotine replacement therapy at this time--> patient will ask if he desires this -Recommend cessation Elevated blood pressure without history of hypertension -May be related to pain -Blood pressures are better today -Continue to monitor blood pressures while admitted -If blood pressures remain consistently high during his hospitalization will recommend follow-up as an outpatient and consideration for initiation of antihypertensives Regular alcohol use -Patient states he drinks approximately 3 beers every other day -Never gone through withdrawal -We will monitor DVT prophylaxis -Lovenox daily 40 mg CODE STATUS -Full code Charges/Coding Visit Charges Inpatient E&M: 73594 Subs Hosp L2
[2021-08-20 14:56] VITALS: BP 112/69; PULSE 70; RESP 16; TEMP 37.2; O2SAT 98
[2021-08-20 21:49] VITALS: BP 123/75; PULSE 56; RESP 16; TEMP 36.6; O2SAT 98
[2021-08-21] VITALS (10 sets, daily range): BP systolic 108–141; BP diastolic 69–94; PULSE 58–71; RESP 14–18; TEMP 36.3–36.9; O2SAT 96–99; BMI 28.3
[2021-08-21] MEDS: metroNIDAZOLE 500 MG/100 ML BAG 100 MG IV ×2 (05:12→14:32)
--- NOTE | 2021-08-21 07:00 | CT_ITS ---
STUDY: CT PELVIS WITH CONTRAST REASON FOR EXAM: Male, 41 years old. Diverticular abscess RADIATION DOSAGE (If Supplied By Facility): CTDIvol = ( 13.31 ) mGy, DLP = ( 283.85 ) mGycm TECHNIQUE: Transaxial imaging of the pelvis was performed without oral contrast. was administered intravenously. Individualized dose optimization techniques were used for this CT. COMPARISON: Comparison is made with prior examination dated 08/19/2021. FINDINGS: Normal urinary bladder. Normal visualized small intestine. There is sigmoid diverticulosis, with thickening of the colon wall, and pericolon inflammation changes consistent with acute diverticulitis. The previously seen 5 cm x 3.5 cm abscess in the antimesenteric side of the sigmoid colon has almost completely resolved. A tiny extraluminal air is seen at the access site. The drainage was not performed. There is no pelvic fluid. There is no pelvic lymphadenopathy or mass lesion. Normal visualized pelvic arteries. Normal abdominal wall. Normal osseous structures. CT/CT Guidance Abscess Drg w/Cath IMPRESSION: Interval decrease in size of the previously seen abscess collection along the antimesenteric side of the sigmoid colon as described. Minimal residual inflammatory changes persist with a tiny extraluminal air bubble within the mesenteric fat. The drainage was not performed. Electronically Signed: Robert Kramer MD at 13:20 EDT , Service support ,
[2021-08-21 07:01] LABS: Absolute Lymphocyte Count 2.64 X10^3/uL (0.83-4.51); Absolute Neutrophil Count 4.5 X10^3/uL (2.0-7.7); Basophil# 0.04 X10^3/uL; Basophil% 0.5 % (0-1); Eosinophil# 0.17 X10^3/uL; Eosinophils% 2.1 % (0-5); Hematocrit 40.8 % (40-54); Hemoglobin 13.8 g/dL (13.0-16.5); Lymphocyte # 2.64 X10^3/ul (0.83-4.51); Lymphocyte % 32.4 % (19-41); Mean Corp Hgb Conc 33.8 g/dL (32-36); Mean Corpuscular Hgb 34.2 pg (27.0-32.0); Mean Corpuscular Volume 101.2 fL (80-94); Mean Platelet Vol. 11.5 fl (6.2-12.0); Monocyte# 0.76 X10^3/uL; Monocyte% 9.3 % (0-10); NRBC Flagged by Analyzer 0 % (0-5); Neutrophil # 4.46 X10^3/uL (2.7-7.7); Neutrophil % 54.8 % (47-70); Platelet Count 296 K/mm3 (150-450); RBC Distribution Width CV 11.7 % (11.6-14.6); RBC Distribution Width SD 43.7 fl (35.1-43.9); Red Blood Count 4.03 M/mm3 (4.6-6.2); White Blood Count 8.1 K/mm3 (4.4-11.0)
[2021-08-21 07:06] LABS: International Normalized Ratio 1.2; Prothrombin Time (Protime)PT. 14.4 SECONDS (11.7-14.9)
[2021-08-21 07:07] LABS: Partial Thromboplast Time 35.7 Seconds (24.1-36.2)
--- NOTE | 2021-08-21 08:15 | PCM.PN.HOSP ---
Subjective Subjective Follow-up on acute sigmoid diverticulitis/abscess: Patient was seen and examined. He denied any fever or chills or nausea or vomiting. Going for CT guided abscess drainage. Objective Data Objective Data Vital Signs: Vital Signs Temp Pulse Resp BP Pulse Ox 97.7 F L 58 L 15 115/72 98 08/21/21 02:57 08/21/21 02:57 08/21/21 02:57 08/21/21 02:57 08/21/21 02:57 Oxygen Delivery Method Room Air Weight: 89.358 kg Body Mass Index (BMI) 28.3 Intake & Output: Intake and Output for Last 24 Hours 08/19/21 08/20/21 08/21/21 23:59 23:59 23:59 Intake Total 2282.50 / 2282.50 496.25 / 496.25 Balance 2282.50 / 2282.50 496.25 / 496.25 Lab / Micro Data Result Diagrams: 08/21/21 05:20 08/20/21 05:30 Labs: Laboratory Results - last 24 hr 08/21/21 05:20: WBC 8.1, RBC 4.03 L, Hgb 13.8, Hct 40.8, MCV 101.2 H, MCH 34.2 H, MCHC 33.8, RDW Std Deviation 43.7, RDW Coeff of Chrissy 11.7, Plt Count 296, MPV 11.5, Immature Gran % (Auto) 0.900, Neut % (Auto) 54.8, Lymph % (Auto) 32.4, [place] % (Auto) 9.3, Eos % (Auto) 2.1, Baso % (Auto) 0.5, Absolute Neuts (auto) 4.5, Absolute Lymphs (auto) 2.64, Nucleated RBC % 0 08/21/21 05:20: PT 14.4, INR 1.2, APTT 35.7 Physical Exam Narrative Physical exam: General: Alert, Oriented x3, Cooperative, No apparent distress, Well developed HEENT: Atraumatic Oral: Moist Mucosa Neck: Supple Lungs: Clear to auscultation Cardiovascular: HS I+II, regular, no murmurs Abdomen: Bowel Sounds Present, Soft, tenderness over the left lower quadrant, no rebound tenderness Extremities: No edema Assessment & Plan Assessment/Plan (1) Diverticulitis of large intestine with abscess without bleeding: (2) Failure of outpatient treatment: (3) Leukocytosis: QUALIFIERS: Leukocytosis type: unspecified Qualified Code(s): D72.829 - Elevated white blood cell count, unspecified (4) Hyponatremia: PLAN: 1. Acute diverticulitis of the sigmoid colon with abscess, status post failed outpatient treatment Currently on IV Cipro and Flagyl WBC count is normal now Will follow-up after CT-guided abscess drainage General surgery consulted and following 2.Nicotine dependence, advised to quit 3.Elevated blood pressure without history of hypertension, resolved Charges/Coding Visit Charges Inpatient E&M: 55343 Subs Hosp L2
[2021-08-21] MEDS: Ciprofloxacin 400 MG/200 ML BAG 200 MG IV (09:26)
[2021-08-21] MEDS: Midazolam 2 MG/2 ML Syringe IV (11:33)
[2021-08-21] MEDS: fentaNYL 100 MCG/2 ML Ampul IV (11:33)
--- NOTE | 2021-08-21 15:23 | PCM.DC ---
Discharge Instructions Diet Discharge Diet: - (Continue on a transitional diet and advance your diet as can be tolerated) Activity Discharge Activity: Return to Normal Activity Weight Bearing Status: Weight bearing as tolerated Follow Up Care Test Results: Test results from this visit will be discussed in further detail at your follow-up appointment, if applicable. Discharge Plan Admission Admit Date/Time: 08/19/21 11:42 Primary Reason for Your Visit: Acute sigmoid diverticulitis/abscess Attending Provider: Vickie Aguilar Primary Care Provider: Care Physician,No Primary Consulting Providers: Tom Serrano Instructions Additional Instructions / Restrictions: Continue on a full liquid diet and advance your diet as can be tolerated. Follow-up with Dr. Serrano in the outpatient within 2 weeks. Complete your antibiotics. Discharge Orders/Prescriptions Prescriptions: New amoxicillin-pot clavulanate [Augmentin] 875-125 mg tablet 1 tab PO BID 7 Days Qty: 14 RF: 0 Discontinued metronidazole 500 mg tablet 500 mg PO TID RF: 0 ciprofloxacin HCl [Cipro] 500 mg tablet 500 mg PO BID RF: 0 Referrals / Follow Up: Care Physician,No Primary [Primary Care Provider] - Within 2 Weeks Tom Serrano MD [STAFF PHYSICIAN] - Within 1 Week Disposition Disposition (needs filled in before D/C Order can be placed): Home, Self Care
--- NOTE | 2021-08-21 15:29 | PCM.DC.SUM ---
Providers Date of Admission: 08/19/21 Date of Discharge: 08/21/21 Primary Care Physician: Carmen Primary Care Phys Consultations 08/19/21 12:33 Consult: General Surgery Routine Consulting Provider: Tom Serrano Reason for Consult: Diverticular Abscess EMERGENT Consult: No MD Notified: Yes Date Notified: 08/19/21 Time Notified: 13:28 Method of Notification: spoke on phone Reason For Visit: COMPLICATED DIVERTICULITIS Diagnosis Discharge Diagnosis (1) Diverticulitis of large intestine with abscess without bleeding: Status: Acute Code(s): K57.20 - Diverticulitis of large intestine with perforation and abscess without bleeding (2) Failure of outpatient treatment: Status: Acute Code(s): Z78.9 - Other specified health status (3) Leukocytosis: Status: Resolved Code(s): D72.829 - Elevated white blood cell count, unspecified Qualifiers: Leukocytosis type: unspecified Qualified Code(s): D72.829 - Elevated white blood cell count, unspecified (4) Hyponatremia: Status: Resolved Code(s): E87.1 - Hypo-osmolality and hyponatremia Medications at Discharge Home Medications amoxicillin-pot clavulanate [Augmentin] 1 tab PO BID 7 Days #14 tab 08/21/21 Hospital Course Operations None Procedures None and - Summary of Care Provided Minutes Spent on Discharge: 45 Hospital Course: 41-year-old male who presented with left lower quadrant abdominal pain. He was previously seen in the ED on 08/12/[address] of the abdomen and pelvis showed mild sigmoid diverticulitis without any evidence of perforation or abscess. The plan was for GI follow-up. He was discharged on Cipro and Flagyl. He presented with worsening pain. He stated that he has been compliant with his antibiotics. Repeat CT showed thickening inflammation of the mid-sigmoid colon with a 5 x 3.5 cm abscess. Patient was admitted to the [facility] floor for medical management. General surgery was consulted from the ED. Patient was managed on IV Flagyl and Cipro. He was scheduled for CT guided abscess drainage. However, repeat CT of abdominal/pelvis showed interval improvement. CT guided drainage was not performed. Patient was discharged on 1 week of Augmentin. He was asked to maintain on a transitionary diet. He will follow-up with Dr. Serrano in 1 week. Physical Exam Narrative see progress note of day Weight / BMI Weight Weight: 89.35 kg Body Mass Index (BMI) 28.3 ABG / Lab / Microbiology Data Result Diagrams: 08/21/21 05:20 08/20/21 05:30 Laboratory: Laboratory Results - last 24 hr 08/21/21 05:20: WBC 8.1, RBC 4.03 L, Hgb 13.8, Hct 40.8, MCV 101.2 H, MCH 34.2 H, MCHC 33.8, RDW Std Deviation 43.7, RDW Coeff of Chrissy 11.7, Plt Count 296, MPV 11.5, Immature Gran % (Auto) 0.900, Neut % (Auto) 54.8, Lymph % (Auto) 32.4, [place] % (Auto) 9.3, Eos % (Auto) 2.1, Baso % (Auto) 0.5, Absolute Neuts (auto) 4.5, Absolute Lymphs (auto) 2.64, Nucleated RBC % 0 08/21/21 05:20: PT 14.4, INR 1.2, APTT 35.7 Radiography Diagnostic Testing: Radiology Impression Abscess Drainage CT 08/21/21 07:00 IMPRESSION: Interval decrease in size of the previously seen abscess collection along the antimesenteric side of the sigmoid colon as described. Minimal residual inflammatory changes persist with a tiny extraluminal air bubble within the mesenteric fat. The drainage was not performed. Electronically Signed: Robert Kramer MD at 13:20 EDT , Service support , D/C Instructions Discharge Diet: - (Continue on a transitional diet and advance your diet as can be tolerated) Weight Bearing Status: Weight bearing as tolerated Meaningful Use Info Meaningful Use Diagnoses (Choose all that apply): None applicable Discharge Plan Admission Admit Date/Time: 08/19/21 11:42 Primary Reason for Your Visit: Acute sigmoid diverticulitis/abscess Attending Provider: Vickie Aguilar Primary Care Provider: Care Physician,No Primary Consulting Providers: Tom Serrano Instructions Forms: Work / School Excuse Additional Instructions / Restrictions: Continue on a full liquid diet and advance your diet as can be tolerated. Follow-up with Dr. Serrano in the outpatient within 2 weeks. Complete your antibiotics. Discharge Orders/Prescriptions Prescriptions: New amoxicillin-pot clavulanate [Augmentin] 875-125 mg tablet 1 tab PO BID 7 Days Qty: 14 RF: 0 Discontinued metronidazole 500 mg tablet 500 mg PO TID RF: 0 ciprofloxacin HCl [Cipro] 500 mg tablet 500 mg PO BID RF: 0 Referrals / Follow Up: Tom Serrano MD [STAFF PHYSICIAN] - Within 1 Week Care Physician,No Primary [Primary Care Provider] - Within 2 Weeks Disposition Disposition (needs filled in before D/C Order can be placed): Home, Self Care Charges/Coding Visit Charges Inpatient E&M: 27128 Disch Hosp
--- NOTE | 2021-08-21 15:38 | CASEMGMT ---
RN CM Assessment Introduced role of RN CM to patient. Patient is alert, oriented and able to participate in RN CM Assessment. Care providers, pharmacy, and demographics verified. Admit Dx: Complicated Diverticulitis. Was in ER - CT A/p mild sigmoid Diverticulitis without perforation/Abscess.Was Dc'd with Cipro/Flagyl and f/u Dr Mooney on 08/21. Re-Admit: No Barriers/Issues: None PCP: None, [facility] has a consult on 09/06/21 with [facility] for one and denied PCP list. Specialists: None [facility]erred [facility]acy: [facility] Insurance: [employer] Benefit: Yes LNOK: Damaris Brody LW/HPOA: None, declined offered information or completion with social sciences instructor. Made aware can return as an outpatient to complete with group social worker dept at a later time if wanting. Living Arrangements: Lives with and dtr in a 2SH, couple steps within home, 10 steps to enter home. ADL?s: Independent with ambulation and ADLs. Transportation: Both patient and drive, will transport upon DC. DME: None HHC: None SNF: None Goal: Home and does not think will have any needs, issues, or concerns with going home. DC PLAN: Home with no anticipated needs identified at this time. Anthony cox RNCM
== END 2021-08-21 17:06 | disposition home or self-care (01) | DRG 392 ==
LOC: ED 11:35 → MS3 11:58
PROVIDERS: Admitting Provider Internal Medicine; Emergency Provider Emergency Medicine; Visit Provider Internal Medicine
DX: K57.20 Diverticulitis of large intestine with perforation and abscess without bleeding (principal); E87.1 Hypo-osmolality and hyponatremia; D72.829 Elevated white blood cell count, unspecified; R03.0 Elevated blood-pressure reading, without diagnosis of hypertension; F17.210 Nicotine dependence, cigarettes, uncomplicated
CPT/HCPCS: 36415; 74177; 75989; 80048; 80053; 83735; 84100; 85025; 85610; 85730; 97802; 99156; 99251; 99284; 99406; J7030; Q9967; A4216; G0463; J0744; J2405

== ENCOUNTER → 2021-09-06 16:26 | Outpatient (CLI) | payer BC, SELFPAY ==
[2021-09-06 17:36] LABS: Absolute Lymphocyte Count 3.29 X10^3/uL (0.83-4.51); Absolute Neutrophil Count 6.1 X10^3/uL (2.0-7.7); Basophil# 0.04 X10^3/uL; Basophil% 0.4 % (0-1); Eosinophil# 0.11 X10^3/uL; Eosinophils% 1.1 % (0-5); Hematocrit 46.6 % (40-54); Hemoglobin 15.8 g/dL (13.0-16.5); Lymphocyte # 3.29 X10^3/ul (0.83-4.51); Lymphocyte % 31.5 % (19-41); Mean Corp Hgb Conc 33.9 g/dL (32-36); Mean Corpuscular Hgb 34.1 pg (27.0-32.0); Mean Corpuscular Volume 100.6 fL (80-94); Mean Platelet Vol. 11.8 fl (6.2-12.0); Monocyte# 0.87 X10^3/uL; Monocyte% 8.3 % (0-10); NRBC Flagged by Analyzer 0 % (0-5); Neutrophil # 6.11 X10^3/uL (2.7-7.7); Neutrophil % 58.5 % (47-70); Platelet Count 182 K/mm3 (150-450); RBC Distribution Width CV 12.3 % (11.6-14.6); RBC Distribution Width SD 45.7 fl (35.1-43.9); Red Blood Count 4.63 M/mm3 (4.6-6.2); White Blood Count 10.4 K/mm3 (4.4-11.0)
[2021-09-06 17:48] LABS: Erythrocyte Sedimentation Rate 21 mm/hr (0-20)
[2021-09-06 18:07] LABS: ALB/GLOB Ratio 1.1 RATIO (0.9-2.4); AST(SGOT) 29 U/L (15-37); Alanine Aminotransfer ALT/SGPT 55 U/L (16-61); Alkaline Phosphatase 99 U/L (45-117); Anion Gap 8 (5-15); BUN 10 mg/dL (7-18); BUN/Creat Ratio 11.2 RATIO (10-20); CRP 8.04 mg/L (0.0-3.0); Calcium,Total 9.3 mg/dL (8.5-10.1); Chloride 106 mmol/L (98-107); Cholesterol 239 mg/dL (200); Creatinine, Serum 0.89 mg/dL (0.70-1.30); EST Glomerular Filtration Rate 100 mL/min (>60); Est Glom Filt Rate - Afr Amer 121 mL/min (>60); Globulin 3.7 g/dL (2.2-4.2); Glucose 98 mg/dL (74-106); High Density Lipoprotein 28 mg/dL; LDH 162 U/L (87-241); Potassium 3.8 mmol/L (3.5-5.1); Protein, Total 7.7 g/dL (6.4-8.2); Sodium Level 136 mmol/L (136-145); Triglycerides 699 mg/dL
== END ==
PROVIDERS: Referring Provider Internal Medicine Gastroenterology; Visit Provider Internal Medicine Gastroenterology
DX: K57.20 Diverticulitis of large intestine with perforation and abscess without bleeding (principal)
CPT/HCPCS: 36415; 80053; 80061; 83615; 85025; 85652; 86140; 87040

== ENCOUNTER → 2021-09-07 | Outpatient (CLI) | payer BC, SELFPAY ==
[2021-09-08 20:40] LABS: Giardia Lamblia, Stool EIA Negative (Negative)
== END | disposition home or self-care (01) ==
LOC: LABSPEC 07:17
PROVIDERS: Referring Provider Internal Medicine Gastroenterology; Visit Provider Internal Medicine Gastroenterology
DX: K57.20 Diverticulitis of large intestine with perforation and abscess without bleeding (principal); R19.7 Diarrhea, unspecified
CPT/HCPCS: 83630; 87177; 87209; 87329; 87493; 87506

== ENCOUNTER 2021-10-03 12:56 | Day surgery (SDC) | payer BC, SELFPAY ==
[2021-10-03] VITALS (7 sets, daily range): BP systolic 93–138; BP diastolic 65–92; PULSE 76–95; RESP 16; TEMP 36–36.3; O2SAT 99–100; BMI 28.1
[2021-10-03] MEDS: Lactated Ringers 1,000 ML 15 ML IV (13:30)
--- NOTE | 2021-10-03 14:00 | COLBX_PTH ---
PATIENT: STEPHANIE CHAMBERLAIN LOC: EN U#:[id number] AGE/SX: 41/M ROOM: RE10/03/[address]: Dr. Luis Mooney DO : 1980 BED: DIS: 10/03/2021 SPEC #: [id number] RECD: 10/03/21 16:25 STATUS: JUAQUIN TIFFANY #: [id number] MEJIA: 10/03/21 14:[address]: Luis Mooney DEPT: SURGICAL PATHOLOGY RECD BY: Eldon Crenshaw ENTERED: 10/04/21 09:41 SP TYPE: COLON BX OTHR DR: Carmen Primary Care Phys Tissues: Sigmoid colon biopsy Procedures: Surgery Specimen Level IV HEADER OPERATION: Colonoscopy PRE-OP DIAGNOSIS: Diverticulitis of large intestine with abscess without bleeding TISSUE SUBMITTED: Sigmoid polyp biopsy MICROSCOPIC DIAGNOSIS Sigmoid colon polyp, biopsy: Tubular adenoma. AM:vinny 10/05/2021 MICROSCOPIC DESCRIPTION Slides are reviewed. GROSS DESCRIPTION Received in fixative is one container labeled with the patient's name and designated sigmoid colon polyp biopsy. The specimen consists of multiple irregular fragments of light garcia soft tissue that in aggregate measure 1 x 0.5 x 0.1 cm. The specimen is totally submitted in one cassette. / AM:vinny 10/04/21 TC:5 CPT: 35398
--- NOTE | 2021-10-03 14:41 | HP.PCM_ITS ---
History and Physical Date of Admission: 10/03/21 Details: STEPHANIE CHAMBERLAIN, is a 41 M who presents to the office today for Presented for [facility] ED r/t RLQ abdominal pain. CT scan performed and rx'd antibiotics. Presented again to ED for same pain. CT scna performed again with candido. Kept in hospital for surgery. Prior to surgery being performed the abscess shrunk. Current pain very infrequent ache. ROS Const Constitutional: No anorexia, fatigue, fever(s), weight change or sleep problems Eyes Eyes: No change in vision ENT ENT: No abnormal hearing, difficulty swallowing, mouth lesions, tongue swelling or throat swelling Resp Respiratory: No cough or shortness of breath Cardio Cardiology: No chest pain at rest, chest pain with exertion, shortness of breath or dyspnea on exertion Gastro GI: Positive for abdominal pain; No difficulty swallowing Genitourinary Male: No difficulty urinating or burning urination Musc Musculoskeletal: No joint pain, joint swelling, muscle weakness or decreased muscle mass Skin Skin: No hair loss in leg, yellowing of the eye, itchy eyes, rash, skin ulcer or skin swelling Neuro Neurology: No abnormal hearing, abnormal movements, confusion, unsteady gait/balance or memory loss Psych Psychiatric: No anxiety, No confusion and No memory loss Endo Endocrine: No fatigue or weight change Aller/Imm Allergy/Immunologic: No itchy eyes, throat swelling or tongue swelling Cali/Lymp Hematologic/Lymphatic: No easy bleeding, easy bruising or enlarged lymph nodes Exam Const General: cooperative and comfortable Nutritional Appearance: average body habitus and well nourished [facility] Head: normal to inspection Ears: hearing grossly normal bilaterally Nose: external nose normal Face and sinus: normal facial exam Mouth: oral mucosae normal Throat: posterior oropharynx normal Eyes General: appearance normal, both eyes and all related structures Neck Neck: normal visual inspection Chest Chest palpation & inspection: normal inspection of the chest and normal palpation of entire chest wall Resp Effort & Inspection: normal respiratory effort Auscultation: Bilateral: Clear to Auscultation Cardio Palpation: normal PMI Rate: regular rate Rhythm: regular rhythm GI Inspection: normal to inspection Auscultation: normal bowel sounds Percussion: normal to percussion Palpation: no hepatosplenomegaly Skin General: no rashes or lesions noted Neuro General: patient alert Extrem General: normal to inspection Psych Affect: normal affect Quality Reporting Tobacco Screening ([facility] 138) Smoking Status: Current every day smoker Assessment and Plan Assessment and Plan (1) Diverticulitis of large intestine with abscess without bleeding: Status: Acute Plan - Dr. Smith Friend, DO: We will perform colonoscopy to evaluate his lower GI tract to make sure he does not have any mass that caused him to have diverticulitis with perforation and abscess formation. I reviewed his CT scan extensively and I cannot see a lot of diverticuli. I do see some thickening in the colon. We will need to rule out Crohn's disease and ulcerative colitis which can be an impetus for acute diverticulitis in a young person. I have re-examined the patient. There are no clinical changes since date of exam.
--- NOTE | 2021-10-03 15:23 | OP.COLON_ITS ---
Patient Name: Fabiano Brody Procedure Date: 10/03/2021 2:39 PM Date of : 1980 Age: 41 Procedure: Colonoscopy Indications: Recurrent Clostridium difficile colitis Providers: Luis Mooney DO Medicines: See the Anesthesia note for documentation of the administered medications Patient Profile: This is a 41 year old male. Refer to note in patient chart for documentation of history and physical. Last Colonoscopy: none. The patient's first colonoscopy is today. Complications: No immediate complications. Procedure: Pre-Anesthesia Assessment: - Prior to the procedure, a History and Physical was performed, and patient medications and allergies were reviewed. The patient is competent. The risks and benefits of the procedure and the sedation options and risks were discussed with the patient. All questions were answered and informed consent was obtained. Patient identification and proposed procedure were verified by the physician in the pre-procedure area. Mental Status Examination: alert and oriented. Airway Examination: normal oropharyngeal airway and neck mobility. Respiratory Examination: clear to auscultation. CV Examination: normal. Prophylactic Antibiotics: The patient does not require prophylactic antibiotics. Prior Anticoagulants: The patient has taken no previous anticoagulant or antiplatelet agents. ASA Grade Assessment: II - A patient with mild systemic disease. After reviewing the risks and benefits, the patient was deemed in satisfactory condition to undergo the procedure. The anesthesia plan was to use moderate sedation / analgesia (conscious sedation). Immediately prior to administration of medications, the patient was re-assessed for adequacy to receive sedatives. The heart rate, respiratory rate, oxygen saturations, blood pressure, adequacy of pulmonary ventilation, and response to care were monitored throughout the procedure. The physical status of the patient was re-assessed after the procedure. After I obtained informed consent, the scope was passed under direct vision. Throughout the procedure, the patient's blood pressure, pulse, and oxygen saturations were monitored continuously. The Colonoscope was introduced through the anus and advanced to the terminal ileum. The Colonoscope was introduced through the anus and advanced to the terminal ileum. The colonoscopy was performed without difficulty. The patient tolerated the procedure well. The quality of the bowel preparation was good. Moderate Sedation: Moderate (conscious) sedation was administered by the endoscopy nurse and supervised by the endoscopist. The patient's oxygen saturation, heart rate, blood pressure and response to care were monitored. Total physician intraservice time was 15 minutes. Scope In: 2:57:37 PM Scope Withdrawal Time 0 hours 12 minutes 16 seconds Scope Out: 3:12:38 PM Total Procedure Duration Time 0 hours 15 minutes 1 second Findings: The perianal and digital rectal examinations were normal. An area of moderately congested mucosa was found in the sigmoid colon. There was also segmental colitis associated with diverticulosis. A few small-mouthed diverticula were found in the recto-sigmoid colon and sigmoid colon. There was no evidence of diverticular bleeding. A 5 mm polyp was found in the sigmoid colon. The polyp was sessile. The polyp was removed with a jumbo cold forceps. Resection and retrieval were complete. Verification of patient identification for the specimen was done. Estimated blood loss was minimal. The exam was otherwise normal throughout the examined colon. Impression: - Congested mucosa in the sigmoid colon. - Moderate diverticulosis in the recto-sigmoid colon and in the sigmoid colon. There was no evidence of diverticular bleeding. - One 5 mm polyp in the sigmoid colon, removed with a jumbo cold forceps. Resected and retrieved. The segmental colitis associated diverticulosis has been known to cause recurrent diverticulitis. Recommendation: - Discharge patient to home. - Resume previous diet. - Continue present medications. - Await pathology results. - Repeat colonoscopy in 5 years for surveillance. - Return to GI office in 2 weeks. - Use Lialda 1.2 gm at 2 tabs PO daily for 6 weeks. Procedure Code(s): --- Professional --- 38940, Colonoscopy, flexible; with biopsy, single or multiple G0500, Moderate sedation services provided by the same physician or other qualified health client care coordinator performing a gastrointestinal endoscopic service that sedation supports, requiring the presence of an independent trained observer to assist in the monitoring of the patient's level of consciousness and physiological status; initial 15 minutes of intra-service time; patient age 5 years or older (additional time may be reported with 36938, as appropriate) CPT copyright 2017 [employer]. All rights reserved. The codes documented in this report are preliminary and upon naval aircrewman tactical helicopter review may be revised to meet current compliance requirements. Luis Mooney DO 10/03/2021 3:22:56 PM This report has been signed electronically. Number of Addenda: 1 Note Initiated On: 10/03/2021 2:39 PM Addendum Number: 1 Addendum Date: 07/04/2022 7:04:43 AM MAC was used instead of moderate sedation for the patient. Luis Mooney DO 07/04/2022 7:04:47 AM This report has been signed electronically.
== END 2021-10-03 16:14 | disposition home or self-care (01) ==
LOC: EN 12:58 → AC 12:58
PROVIDERS: Referring Provider Internal Medicine Gastroenterology; Visit Provider Internal Medicine Gastroenterology
PROC: 0DJD8ZZ Inspection of Lower Intestinal Tract, Via Natural or Artificial Opening Endoscopic (ICD-10-PCS; CPT 45378; principal; 2021-10-03 13:55)
DX: D12.5 Benign neoplasm of sigmoid colon (principal); K57.32 Diverticulitis of large intestine without perforation or abscess without bleeding; A04.71 Enterocolitis due to Clostridium difficile, recurrent; F17.200 Nicotine dependence, unspecified, uncomplicated
CPT/HCPCS: 45380; 87426; 88305; C9803; J7120

== ENCOUNTER 2021-11-03 06:48 | Outpatient (CLI) | payer BC, SELFPAY | END 2021-11-03 23:59 | disposition short-term general hospital (02) | LOC: LABSPEC 06:50 | PROVIDERS: Referring Provider Internal Medicine Gastroenterology; Visit Provider Internal Medicine Gastroenterology | DX: R19.7 Diarrhea, unspecified (principal) | CPT/HCPCS: 87493 ==